=== PATIENT | female | born 1985 | race African-American/Black ===

== ENCOUNTER 2016-09-23 18:01 | Emergency (ER) | payer BC | END 2016-09-23 18:10 | disposition home or self-care (01) | LOC: CFTX 18:01 | DX: T78.40XA Allergy, unspecified, initial encounter (principal) | CPT/HCPCS: 84703; 99283 ==

== ENCOUNTER 2017-01-30 15:44 | Emergency (ER) | payer BC ==
--- NOTE | ~2017-01-30 | CR281 ---
[facility] A Service of [facility] & [facility] RADIOLOGY TEXT RESULTS PATIENT: ANATOLIY WERNER LOCATION: [facility] : 85 UNIT #: [id number] AGE: [address]: Kassy Smith APRN SEX: F ORDER DR: [id number] [facility] [address] [place], [place] [address] [id number] E MR#: [id number] Acc #: [id number] NAME: ANATOLIY WERNER : 1985 SEX: F STUDY DATE/TIME: 01/30/2017 17:11 UNIT: [facility] ROOM: STUDY DESCRIPTION: CR Wrist Min 3 View Lt Attending Physician: Kassy Smith A.P.R.N. Ordering Physician: Marc Cid M.D. Primary Care Physician: Primary Care Physician No MEDICAL IMAGING REPORT This report is preliminary unless electronic signature is present EXAM Left wrist 3 views, 01/30/2017 HISTORY Left wrist pain medially after hitting wrist on a dresser yesterday. Persistent pain. FINDINGS Wrist evaluation in multiple projections shows normal mineralization of the bony structures about the wrist and satisfactory articular relationship of the radius and ulna to the proximal carpal row and of the distal carpal segments to the metacarpal bases. There is no indication of fracture or dislocation, and no soft tissue radiopaque foreign body is present. No congenital defects are apparent. IMPRESSION Normal wrist. Dictated by... Didier Corea M.D. THIS IS AN ELECTRONICALLY VERIFIED REPORT Didier Corea M.D. at 01/31/2017 7:21 AM JOI/juan a TD: 01/30/2017 23:24 JOB #: [id number] MEDICAL IMAGING REPORT Page 1 of 1 COPY
== END 2017-01-30 18:10 | disposition home or self-care (01) ==
LOC: CFTX 15:44 → CED 15:44 → CFTX 17:56
DX: S60.212A Contusion of left wrist, initial encounter (principal); W01.10XA Fall on same level from slipping, tripping and stumbling with subsequent striking against unspecified object, initial encounter
CPT/HCPCS: 29125; 73110; 99283